=== PATIENT | male | born 1995 | race African-American/Black ===

== ENCOUNTER 2017-02-23 00:29 | Emergency (ER) | payer SELFPAY ==
[~2017-02-23] VITALS: Ht 177.8 cm; Wt 72.0 kg
[2017-02-23 00:32] VITALS: BP 122/77; PULSE 56; RESP 16; TEMP 97.5; O2SAT 99
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
[2017-02-23] MEDS ORDERED: ORPHENADRINE INJ 60 MG/2 ML AMP IM ONE (01:15)
[2017-02-23] MEDS ORDERED: KETOROLAC TROMETHAMINE 60 MG/2 ML (IM) VIAL IM ONE (01:15)
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
[2017-02-23] MEDS ORDERED: NAPR500 PO (02:07)
== END 2017-02-23 03:00 | disposition home or self-care (01) ==
LOC: NEPD 00:29
DX: S40.012A Contusion of left shoulder, initial encounter (principal); V49.9XXA Car occupant (driver) (passenger) injured in unspecified traffic accident, initial encounter
CPT/HCPCS: 73030; 96372; 96374; 99285; J1885; J2360